=== PATIENT | female | born 1990 | race Two or more races ===

== ENCOUNTER 2023-09-02 11:22 | Emergency (ER) | payer OTHER ==
[~2023-09-02] VITALS: Ht 160 cm; Wt 74.4 kg
[2023-09-02] MEDS ORDERED: LEVOTHYROXINE25 MCG (12:02)
[2023-09-02] MEDS ORDERED: SILVER SULFADIAZINE 50 GM JAR TOP STA (12:24)
== END 2023-09-02 12:38 | disposition home or self-care (01) ==
LOC: ER 11:23
DX: T22.021A Burn of unspecified degree of right elbow, initial encounter (principal); X10.0XXA Contact with hot drinks, initial encounter; Y93.89 Activity, other specified; Y92.89 Other specified places as the place of occurrence of the external cause; Y99.9 Unspecified external cause status; Z88.6 Allergy status to analgesic agent; Z91.018 Allergy to other foods